=== PATIENT | female | born 1945 ===

== ENCOUNTER 2024-12-13 12:41 | Outpatient (RCR) | payer MEDICARE, BC, SELFPAY | END 2024-12-14 16:19 | disposition home or self-care (01) | LOC: OT 12:41 | PROVIDERS: PCP Nurse Practitioner Family; Visit Provider Nurse Practitioner Family | DX: R60.0 Localized edema (principal); I89.0 Lymphedema, not elsewhere classified | CPT/HCPCS: 97167 ==